=== PATIENT | male | born 1980 | race Caucasian/White ===

== ENCOUNTER 2017-02-16 13:12 | Emergency (ER) | payer OTHER ==
[2017-02-16 13:22] VITALS: BP 123/81
--- NOTE | 2017-02-16 13:42 | UC ---
Throat Pain/Nasal Chaitanya HPI - HPI Summary HPI Summary: Pt c/o generalized malaise, cough, nasal congestion, sinus pressure, ear "fullness" X 5 days. - History of Current Complaint Hx Obtained From: Patient Onset/Duration: Sudden Onset, Lasting Days, Worse Since - onset Severity: Moderate Associated Signs & Symptoms: Positive: Wheezing, Sinus Discomfort, Other - chills <Sabina Granados NP - Last Filed: 02/16/17 15:01> <Lizeth Blancas - Last Filed: 02/16/17 19:41> - History of Current Complaint Chief Complaint: UCRespiratory Stated Complaint: SINUS,CONGESTION,UPPER RESPIRATORY Time Seen by Provider: 02/16/17 13:34 - Allergies/Home Medications Allergies/Adverse Reactions: Allergies Allergy/AdvReac Type Severity Reaction Status Date / Time No Known Allergies Allergy Verified 02/16/17 13:21 PMH/Surg Hx/FS Hx/Imm Hx Previously Healthy: Yes - Surgical History Surgical History: None - Family History Known Family History: Positive: Cardiac Disease - Social History Occupation: Employed Full-time Lives: With Family Alcohol Use: None Substance Use Type: None Smoking Status (MU): Current Every Day Smoker Type: Cigarettes Amount Used/How Often: 1/2 ppd Have You Smoked in the Last Year: Yes - Immunization History Most Recent Influenza Vaccination: no <Sabina Granados NP - Last Filed: 02/16/17 15:01> Review of Systems Constitutional: Fatigue Skin: Negative Eyes: Negative ENT: Sinus Congestion Respiratory: Shortness Of Breath, Cough Cardiovascular: Negative Gastrointestinal: Negative Genitourinary: Negative Motor: Negative Neurovascular: Negative Musculoskeletal: Myalgia Neurological: Negative Psychological: Negative Is Patient Immunocompromised?: No All Other Systems Reviewed And Are Negative: Yes <Sabina Granados NP - Last Filed: 02/16/17 15:01> Physical Exam Triage Information Reviewed: Yes Appearance: Ill-Appearing Vital Signs: Initial Vital Signs Temp 99 F 02/16/17 13:18 Pulse 87 02/16/17 13:18 Resp 16 02/16/17 13:18 BP 123/81 02/16/17 13:18 Pulse Ox 97 02/16/17 13:18 Vital Signs Reviewed: Yes Eye Exam: Normal ENT: Positive: Nasal congestion, TM bulging Dental Exam: Normal Neck exam: Normal Respiratory Exam: Other Respiratory: Positive: Decreased breath sounds - bilateral bases, Wheezing Cardiovascular Exam: Normal Musculoskeletal Exam: Normal Neurological Exam: Normal Psychological Exam: Normal Skin Exam: Normal <Sabina Granados NP - Last Filed: 02/16/17 15:01> Vital Signs: Initial Vital Signs Temp 99 F 02/16/17 13:18 Pulse 87 02/16/17 13:18 Resp 16 02/16/17 13:18 BP 123/81 02/16/17 13:18 Pulse Ox 97 02/16/17 13:18 <Lizeth Blancas - Last Filed: 02/16/17 19:41> Throat Pain/Nasal Course/Dx - Differential Dx/Diagnosis Differential Diagnosis/HQI/PQRI: Influenza, URI Provider Diagnoses: Bronchitis <Sabina Granados NP - Last Filed: 02/16/17 15:01> Discharge <Sabina Granados NP - Last Filed: 02/16/17 15:01> <Lizeth Blancas - Last Filed: 02/16/17 19:41> - Discharge Plan Condition: Stable Disposition: HOME Prescriptions: Albuterol HFA INHALER* [Ventolin HFA Inhaler*] 1 - 2 puff INH Q4H PRN #1 mdi PRN Reason: Sob/Wheezing Azithromycin TAB* [Zithromax TAB (Z-TRISTAN) 250 mg #6 tabs] 2 tab PO .TODAY, THEN 1 DAILY #1 tristan LoraTADine TAB(NF) [Claritin 10 MG TAB(NF)] 10 mg PO DAILY #14 tab Pseudoephedrine-Guaifenesin [Mucinex D 60-600 mg] 1 tab PO DAILY #14 tab Patient Education Materials: Acute Bronchitis (ED) Referrals: Katey Victor MD [Medical Doctor] - Additional Instructions: Please follow up with your PCP or return to clinic as needed. Attestation Statement User Type: Provider - I was available for consult. This patient was seen by the ALAINA. The patient was not presented to, seen by, or examined by me. -Sebastien <Lizeth Blancas - Last Filed: 02/16/17 19:41>
== END 2017-02-16 13:55 | disposition home or self-care (01) ==
LOC: UCCORT 13:12
DX: J40 Bronchitis, not specified as acute or chronic (principal); F17.210 Nicotine dependence, cigarettes, uncomplicated
CPT/HCPCS: 99202; G0463